=== PATIENT | male | born 1985 | race Caucasian/White ===

== ENCOUNTER 2019-04-02 23:42 | Emergency (ER) | payer OTHER ==
--- OUTSIDE RECORDS SUMMARY | 2019-04-02 23:44 | XMS REPORT ---
:1985 Author Organization eClinicalWorks Care Team Providers Name Role Phone Luis Manuel Garcia Provider Role Unavailable Allergies, Adverse Reactions, Alerts Substance Reaction Event Type N.K.D.A. Info Not Available Non Drug Allergy Problems Problem Type Condition Code Onset Dates Condition Status Problem Migraine, unspecified, not G43.901 Active intractable, with status migrainosus Problem ADHD (attention deficit F90.2 Active hyperactivity disorder), combined type Problem Elevated blood pressure reading in I10 Active office with diagnosis of hypertension Assessment ADHD (attention deficit F90.2 Active hyperactivity disorder), combined type Medications Medication Code Code Instructions Start End Date Status Dosage System Date Adderall XR [facility] [id number] 30 MG Orally February 25Apr 30, Active 1 capsule Once a day 2017 2017 in the morning Adderall NDC 59448668647 30 MG Orally Apr 30, Active 1 tablet Twice a day 2017 Results No Known Results Summary Purpose eClinicalWorks Submission
--- OUTSIDE RECORDS SUMMARY | 2019-04-02 23:44 | XMS REPORT ---
[...] hyperactivity disorder), combined type Medications Medication Code System Code Instructions Start Date End Date Status Dosage Adderall [facility] [id number] 30 MG Orally Apr 30, Active 1 tablet Twice a day 2017 Results No Known Results Summary Purpose eClinicalWorks Submission
--- OUTSIDE RECORDS SUMMARY | 2019-04-02 23:44 | XMS REPORT ---
:1985 Author Organization eClinicalWorks Care Team Providers Name Role Phone Luis Manuel Garcia Provider Role Unavailable Allergies No Known Allergies Problems Problem Type Condition Code Onset Dates Condition Status Problem Migraine, unspecified, not G43.901 Active intractable, with status migrainosus Problem ADHD (attention deficit F90.2 Active hyperactivity disorder), combined type Problem Elevated blood pressure reading in I10 Active office with diagnosis of hypertension Assessment ADHD (attention deficit F90.2 Active hyperactivity disorder), combined type Medications Medication Code Code Instructions Start End Status Dosage System Date Date Adderall XR NDC [id number] 30 MG Orally February 25, Active 1 capsule Once a day 2018 in the morning Adderall XR NDC 43772860605 30 MG Orally February 25, Active 1 capsule Once a day 2018 in the morning [place] 78079284835 30 MG Orally February 23February 25, Inactive 1 capsule Once a day 2017 2017 in the morning Results No Known Results Summary Purpose eClinicalWorks Submission
--- OUTSIDE RECORDS SUMMARY | 2019-04-02 23:44 | XMS REPORT ---
[...] Active office with diagnosis of hypertension Assessment Elevated blood pressure reading in I10 Active office with diagnosis of hypertension Assessment Encounter for general adult medical Z00.00 Active examination without abnormal findings Assessment ADHD (attention deficit F90.2 Active hyperactivity disorder), combined type Assessment Migraine, unspecified, not G43.901 Active intractable, with status migrainosus Medications Medication Code Code Instructions Start End Date Status Dosage System Date Adderall XR [facility] [id number] 30 MG Orally February 23, Active 1 capsule Once a day 2017 in the morning [place] 15363309016 30 MG Orally February 23, Active 1 capsule Once a day 2017 in the morning Results No Known Results Summary Purpose eClinicalWorks Submission
--- OUTSIDE RECORDS SUMMARY | 2019-04-02 23:44 | XMS REPORT ---
[...] Active office with diagnosis of hypertension Assessment Migraine, unspecified, not G43.901 Active intractable, with status migrainosus Assessment ADHD (attention deficit F90.2 Active hyperactivity disorder), combined type Medications Medication Code System Code Instructions Start Date End Date Status Dosage Adderall [facility] [id number] 30 MG Orally Apr 30, Active 1 tablet Twice a day 2017 Results No Known Results Summary Purpose eClinicalWorks Submission
--- OUTSIDE RECORDS SUMMARY | 2019-04-02 23:45 | XMS REPORT ---
[...] Active office with diagnosis of hypertension Assessment Allergic conjunctivitis of right H10.11 Active eye Assessment ADHD (attention deficit F90.2 Active hyperactivity disorder), combined type Medications Medication Code System Code Instructions Start Date End Date Status Dosage Adderall [facility] [id number] 30 MG Orally Apr 30, Active 1 tablet Twice a day 2017 Results No Known Results Summary Purpose eClinicalWorks Submission
[2019-04-03] MEDS ORDERED: HYDROCODONE/APAP 5/325 MG TAB ONE (00:31)
--- NOTE | 2019-04-03 00:54 | ER ---
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 Transition of care: patient was not received from another setting of care. Complicating Factors: There are no complicating factors for this patient. Onset of symptoms was April 02, 2019. Risk Assessment: Do you want to hurt yourself or someone else? Patient reports no desire to harm self or others. Initial Sepsis Screen: Does the patient meet any 2 criteria? No. Patient's initial sepsis screen is negative. Does the patient have a suspected source of infection? No. Patient's initial sepsis screen is negative. Care prior to arrival: None. 23:46 Method Of Arrival: Ambulatory la1 23:46 Acuity: JAILYN 3 la1 Historical: - Allergies: 23:47 No Known Allergies; la1 - Home Meds: 04/03 00:16 Concerta 27 mg Oral tr24 1 tab once daily [Active]; ak1 - PMHx: 00:16 ADD/ADHD; ak1 - PSHx: 00:16 None; ak1 - Immunization history:: Adult Immunizations up to date. - Social history:: Smoking status: Patient/guardian denies using tobacco. - Ebola Screening: : No symptoms or risks identified at this time. Screenin:15 Abuse screen: Denies threats or abuse. Denies injuries from another. Nutritional ak1 screening: No deficits noted. Tuberculosis screening: No symptoms or risk factors identified. Fall Risk None identified. Assessment: 00:11 General: Appears in no apparent distress. Behavior is calm, cooperative. Pain: ch Complains of pain in dorsal aspect of distal phalanx of right index finger and right index fingernail. Neuro: No deficits noted. Cardiovascular: No deficits noted. Respiratory: No deficits noted. GI: No signs and/or symptoms were reported involving the gastrointestinal system. : No signs and/or symptoms were reported regarding the genitourinary system. EENT: No signs and/or symptoms were reported regarding the EENT system. Derm: Wound noted dorsal aspect of distal phalanx of right index finger and right index fingernail pt stated his right 1st finger was slammed in a house door. pt fingernail is missing. bleeding is controlled. Musculoskeletal: Range of motion: intact in all extremities. Injury Description: Laceration is jagged. 01:11 Reassessment: Dr. Mobley spoke with Dr. Mera, pt is to see Dr. Mera Thursday ak1 morning in his office. pt informed of standing appointment on Thursday by Dr. Mobley. 01:20 Reassessment: Patient appears in no apparent distress at this time. Patient and/or ch family updated on plan of care and expected duration. Pain level reassessed. Patient is alert, oriented x 3, equal unlabored respirations, skin warm/dry/pink. Vital Signs: 04/02 23:47 BP 163 / 81; Pulse 72; Resp 16; Temp 98.7; Pulse Ox 98% on R/A; Weight 83.91 kg; Height la1 5 ft. 11 in. (180.34 cm); 04/03 01:00 BP 122 / 74; Pulse 84; Resp 16; Temp 98.8; Pulse Ox 99% on R/A; Pain 4/10; ch 04/02 23:47 Body Mass Index 25.80 (83.91 kg, 180.34 cm) la1 ED Course: 04/02 23:43 Patient arrived in ED. am2 23:47 Triage completed. la1 23:48 Arm band placed on left wrist. la1 04/03 00:11 Jessica Holland, RN is Primary Nurse. ch 00:16 Patient has correct armband on for positive identification. Bed in low position. Call ak1 light in reach. Side rails up X 1. Pulse ox on. NIBP on. 00:30 X-ray completed. Portable x-ray completed in exam room. Patient tolerated procedure mh1 well. 00:31 Hand Right 3 View XRAY In Process Unspecified. EDMS 00:32 Daniel Mobley MD is Attending Physician. pkl 00:52 Gentry Saunders MD is Referral Physician. pkl 01:00 Warm blanket given. ch 01:00 No provider procedures requiring assistance completed. Patient did not have IV access ch during this emergency room visit. 01:18 No apparent distress. Resting quietly. ch 01:18 Wound care: to nail bed amputation located on right index fingernail and dorsal aspect ch of distal phalanx of right index finger was cleaned with soaked in normal saline solution, irrigated with normal saline, dressed with Neosporin, 4X4s, Vaseline gauze, Patient tolerated well. Administered Medications: 00:17 Drug: [place] 5 mg-325 mg 2 tabs Route: PO; la1 01:12 Follow up: Response: No adverse reaction; Pain is decreased ak1 00:51 Drug: KeFLEX 500 mg Route: PO; ak1 01:12 Follow up: Response: No adverse reaction ak1 Outcome: 00:53 Discharge ordered by . pkl 01:15 Discharged to home ambulatory, with family. ch 01:15 Condition: improved 01:15 Discharge instructions given to patient, family, Instructed on discharge instructions, follow up and referral plans. medication usage, wound care, Demonstrated understanding of instructions, follow-up care, medications, wound care, Prescriptions given X 2. 01:23 Patient left the ED. Signatures: Dispatcher [employer] EDMS Jessica Holland RN Daniel Hale ch, MD MD pkl Harvey, Martha Talon Gannon RN RN Tatiana Hodgson RN RN [email or web address] Zenaida Watkins am2 Corrections: (The following items were deleted from the chart) 00:16 07/06 23:47 PMHx: None; brittnee ak1
--- NOTE | 2019-04-03 00:54 | EDPHYS ---
Physician Documentation [facility] Name: Juancarlos Munoz Age: 33 yrs Sex: Male : 1985 Arrival Date: 04/02/2019 Time: 23:43 Bed 5 Private MD: ED Physician Daniel Mobley HPI: 04/03 00:44 This 33 yrs old Male presents to ER via Ambulatory with complaints of pkl Laceration - to Finger. 00:44 The patient or guardian reports injury, pain, amputation tip of right index finger. pkl Context: resulted from finger caught in house door. Onset: The symptoms/episode began/occurred just prior to arrival. Historical: - Allergies: 04/02 23:47 No Known Allergies; la1 - Home Meds: 04/03 00:16 Concerta 27 mg Oral tr24 1 tab once daily [Active]; ak1 - PMHx: 00:16 ADD/ADHD; ak1 - PSHx: 00:16 None; ak1 - Immunization history:: Adult Immunizations up to date. - Social history:: Smoking status: Patient/guardian denies using tobacco. - Ebola Screening: : No symptoms or risks identified at this time. ROS: 00:44 Eyes: Negative for injury, pain, redness, and discharge, ENT: Negative for injury, pkl pain, and discharge, Neck: Negative for injury, pain, and swelling, Cardiovascular: Negative for chest pain, palpitations, and edema, Respiratory: Negative for shortness of breath, cough, wheezing, and pleuritic chest pain, Abdomen/GI: Negative for abdominal pain, nausea, vomiting, diarrhea, and constipation, Back: Negative for injury and pain, : Negative for injury, bleeding, discharge, and swelling. 00:44 MS/extremity: Positive for amputation distal right index finger involving nail bed. 00:44 Neuro: Negative for altered mental status. Exam: 00:44 Head/Face: Normocephalic, atraumatic. Eyes: Pupils equal round and reactive to light, pkl extra-ocular motions intact. Lids and lashes normal. Conjunctiva and sclera are non-icteric and not injected. Cornea within normal limits. Periorbital areas with no swelling, redness, or edema. ENT: Nares patent. No nasal discharge, no septal abnormalities noted. Tympanic membranes are normal and external auditory canals are clear. Oropharynx with no redness, swelling, or masses, exudates, or evidence of obstruction, uvula midline. Mucous membranes moist. Neck: Trachea midline, no thyromegaly or masses palpated, and no cervical lymphadenopathy. Supple, full range of motion without nuchal rigidity, or vertebral point tenderness. No Meningismus. Chest/axilla: Normal chest wall appearance and motion. Nontender with no deformity. No lesions are appreciated. Cardiovascular: Regular rate and rhythm with a normal S1 and S2. No gallops, murmurs, or rubs. Normal PMI, no JVD. No pulse deficits. Respiratory: Lungs have equal breath sounds bilaterally, clear to auscultation and percussion. No rales, rhonchi or wheezes noted. No increased work of breathing, no retractions or nasal flaring. Abdomen/GI: Soft, non-tender, with normal bowel sounds. No distension or tympany. No guarding or rebound. No evidence of tenderness throughout. Back: No spinal tenderness. No costovertebral tenderness. Full range of motion. Neuro: Awake and alert, GCS 15, oriented to person, place, time, and situation. Cranial nerves II-XII grossly intact. Motor strength 5/5 in all extremities. Sensory grossly intact. Cerebellar exam normal. Normal gait. 00:44 Musculoskeletal/extremity: Extremities: grossly normal except: noted in the right index finger: amputation distal right index finger involving nail bed. Vital Signs: 04/02 23:47 BP 163 / 81; Pulse 72; Resp 16; Temp 98.7; Pulse Ox 98% on R/A; Weight 83.91 kg; Height la1 5 ft. 11 in. (180.34 cm); 04/03 01:00 BP 122 / 74; Pulse 84; Resp 16; Temp 98.8; Pulse Ox 99% on R/A; Pain 4/10; ch 04/02 23:47 Body Mass Index 25.80 (83.91 kg, 180.34 cm) la1 MDM: 00:33 Patient medically screened. pkl 00:44 Data reviewed: vital signs, nurses notes, radiologic studies, plain films. ED course: pk Talked to Dr. Anderson, will see patient in his [place] office on Thursday04/04/19. 04/02 23:53 Order name: Hand Right 3 View XRAY la1 Administered Medications: 00:17 Drug: [place] 5 mg-325 mg 2 tabs Route: PO; la1 01:12 Follow up: Response: No adverse reaction; Pain is decreased ak1 00:51 Drug: KeFLEX 500 mg Route: PO; ak1 01:12 Follow up: Response: No adverse reaction ak1 Disposition: 04/03/19 00:53 Discharged to Home. 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 - Condition is Stable. - Prescriptions for Keflex 500 mg Oral Capsule - take 1 capsule by ORAL route every 6 hours for 10 days; 40 capsule. Ultram 50 mg Oral Tablet - take 1 tablet by ORAL route every 6 hours As needed; 20 tablet. - Medication Reconciliation Form, Thank You Letter, Antibiotic Education, Prescription Opioid Use form. - Follow up: Gentry Saunders MD; When: 1 - 2 days; Reason: Re-evaluation by your physician. - Problem is new. - Symptoms are unchanged. Signatures: Dispatcher [employer] EDMS Jessica Holland RN RN Daniel Mobley MD MD pkl Talon Rodriguez RN RN la1 Tatiana Do RN RN ak1 Corrections: (The following items were deleted from the chart) 00:16 04/02 23:47 PMHx: None; la1 ak1 04/03 01:23 00:53 04/03/2019 00:53 Discharged to Home. Impression: Amputation distal right index ch finger involving nail bed. Condition is Stable. Forms are Medication Reconciliation Form, Thank You Letter, Antibiotic Education, Prescription Opioid Use. Follow up: Gentry Saunders; When: 1 - 2 days; Reason: Re-evaluation by your physician. Problem is new. Symptoms are unchanged. pkl
[2019-04-03] MEDS ORDERED: CEPHALEXIN 250 MG CAP ONE (01:01)
--- NOTE | 2019-04-03 08:41 | RAD REPORT ---
EXAM DESCRIPTION: RAD - Hand Right 3 View - 04/03/2019 12:32 am CLINICAL HISTORY: Right second digit pain, crush injury COMPARISON: None. FINDINGS: Soft tissue injury is present at the tip of the right index finger. Small fracture change present involving the second distal phalanx tuft. No foreign body identified. No foreign body or othe r soft tissue abnormality. IMPRESSION: Right second distal phalanx tuft fracture with soft tissue wound. No foreign body.
== END 2019-04-03 01:23 | disposition home or self-care (01) ==
LOC: ER 23:42
DX: S68.120A Partial traumatic metacarpophalangeal amputation of right index finger, initial encounter (principal); W23.0XXA Caught, crushed, jammed, or pinched between moving objects, initial encounter
CPT/HCPCS: 99284

== ENCOUNTER 2020-01-15 21:50 | Emergency (ER) | payer OTHER ==
--- OUTSIDE RECORDS SUMMARY | 2020-01-15 21:52 | XMS REPORT ---
:1985 Author Organization eClinicalWorks Care Team Providers Name Role Phone Luis Manuel Garcia Provider Role Unavailable Allergies, Adverse Reactions, Alerts Substance Reaction Event Type N.K.D.A. Info Not Available Non Drug Allergy Problems Problem Type Condition Code Onset Dates Condition Statu s Problem Migraine, unspecified, not G43.901 A ctive intractable, with status migrainosus Problem ADHD (attention deficit F90.2 Acti ve hyperactivity disorder), combined type Problem Elevated blood pressure reading in I10 Active office with diagnosis of hypertension Assessment Allergic conjunctivitis of right H10.11 Active eye Assessment ADHD (attention deficit F90.2 Acti ve hyperactivity disorder), combined type Medications Medication Code System Code Instructions Start Date End Date Status Dosage Adderall [facility] [id number] 30 MG Orally Apr 30, Active 1 tabl et Twice a day 2018 Results No Known Results Summary Purpose eClinicalWorks Submission
--- OUTSIDE RECORDS SUMMARY | 2020-01-15 21:52 | XMS REPORT ---
:1985 Author Organization [facility] t Address [address] [place] [address] Care Team Providers Name Role Phone Unavailable Unavailable Unavailable Payers Payer Name Policy Type Policy Number Effective Date Expiration D ate Problems Condition Condition Condition Status Onset Resolution Last Treatin g Comments Name Details Category Date Date Treatment Clinician Date ADHD ADHD Problem Active (attention (attention deficit deficit hyperactivi hyperactivi ty ty disorder), disorder), combined combined type type Migraine, Migraine, Problem Active unspecified unspecified , not , not intractable intractable , with , with status status migrainosus migrainosus Elevated Elevated Problem Active blood blood pressure pressure reading in reading in office with office with diagnosis diagnosis of of hypertensio hypertensio n n Allergies, Adverse Reactions, Alerts Allergy Allergy Status Severity Reaction(s) Onset Inactive Treating C omments Name Type Date Date Clinician No Known DA Active U 2019-03 Allergies -11 00:00:0 0 Medications Ordered Filled Start Stop Current Ordering Indication Dosage Frequency Signature Comments Components Medication Medication Date Date Medication? Clinician (SIG) Name Name Adderall Adderall Yes Erich 1 tablet 12-28 Fang 00:00: 00 Encounters Start End Encounter Admission Attending Care Care Encounter Date/Time Date/Time Type Type Clinicians Facility Department ID 2019-11-30 2019-11-30 [facility] [id number] 08:42:00 08:42:00 [facility] Medicine 2019-11-28 2019-11-28 [facility] [id number] 08:30:00 08:30:00 [facility] 2019-11-03 2019-11-03 [facility] [id number] 10:29:00 10:29:00 [facility] 2019-10-04 2019-10-04 [facility] [id number] 08:15:00 08:15:00 [facility] 2019-08-24 2019-08-24 [facility] [id number] 09:00:00 09:00:00 [facility] 2019-08-10 2019-08-10 [facility] [id number] 11:01:00 11:01:00 [facility] 2019-05-04 2019-05-04 [facility] [id number] 16:45:00 16:45:00 [facility] 2018-12-30 2018-12-30 [facility] [id number] 08:30:00 08:30:00 [facility] 2018-10-28 2018-10-28 [facility] [id number] 11:15:00 11:15:00 [facility] 2018-07-05 2018-07-05 [facility] [id number] 15:30:00 15:30:00 [facility] 2018-04-30 2018-04-30 [facility] [id number] 10:00:00 10:00:00 [facility] 2018-02-25 2018-02-25 [facility] [id number] 11:00:00 11:00:00 [facility] 2018-02-23 2018-02-23 [facility] [id number] 08:30:00 08:30:00 [facility] 2017-12-24 2017-12-24 [facility] [id number] 11:15:00 11:15:[address] [facility] Results Test Description Test Time Test Comments Text Results Atomic Results Result Comments CBC W/AUTO DIFF 2019-04-07 11:36:00 Test Item Value Reference Range Comments WHITE BLOOD CELL (test code = WBC) 5.06 x10 3/uL 4.5-11.0 RED BLOOD CELL (test code = RBC) 5.29 x10 6/uL 4.00-5.60 HEMOGLOBIN (test code = HGB) 13.8 g/dL 12.5-16.9 HEMATOCRIT (test code = HCT) 45.0 % 37.5-50.7 MEAN CELL VOLUME (test code = MCV) 85.1 fL 81.0-99.0 MEAN CELL HGB (test code = MCH) 26.1 pg 27.0-33.0 MEAN CELL HGB CONCETRATION (test code = MCHC) 30.7 g/dL 33 .0-37.0 RED CELL DISTRIBUTION WIDTH CV (test code = RDW) 13.5 % 11.5-14.5 RED CELL DISTRIBUTION WIDTH SD (test code = RDW-SD) 41.6 fL 37.0-54.0 PLATELET COUNT (test code = PLT) 186 x10 3/uL 150-400 MEAN PLATELET VOLUME (test code = MPV) 12.7 fL 7.0-9.0 NEUTROPHIL % (test code = NT%) 47.2 % 56.0-77.0 IMMATURE GRANULOCYTE % (test code = IG%) 0.2 % 0.0-2.0 LYMPHOCYTE % (test code = LY%) 39.5 % 14.0-32.0 MONOCYTE % (test code = MO%) 9.9 % 4.8-9.0 EOSINOPHIL % (test code = EO%) 2.8 % 0.3-3.7 BASOPHIL % (test code = BA%) 0.4 % 0.0-2.0 NUCLEATED RBC % (test code = NRBC%) 0.0 % 0-0 NEUTROPHIL # (test code = NT#) 2.39 x10 3/uL 2.0-7.6 IMMATURE GRANULOCYTE # (test code = IG#) 0.01 x10 3/uL 0.00-0. 03 LYMPHOCYTE # (test code = LY#) 2.00 x10 3/uL 1.0-3.8 MONOCYTE # (test code = MO#) 0.50 x10 3/uL 0.1-0.8 EOSINOPHIL # (test code = EO#) 0.14 x10 3/uL 0.0-0.2 BASOPHIL # (test code = BA#) 0.02 x10 3/uL 0.0-0.2 NUCLEATED RBC # (test code = NRBC#) 0.00 x10 3/uL 0.0-0.1 MANUAL DIFF REQUIRED (test code = MDIFF) NO
--- OUTSIDE RECORDS SUMMARY | 2020-01-15 21:53 | XMS REPORT ---
[...] I10 Active office with diagnosis of hypertension Medications No Known Medications Results No Known Results Summary Purpose eClinicalWorks Submission
--- OUTSIDE RECORDS SUMMARY | 2020-01-15 21:53 | XMS REPORT ---
:1985 Author Organization eClinicalWorks Care Team Providers Name Role Phone Leoncio [facility] Provider Role Unavailable Allergies, Adverse Reactions, Alerts [...] of hypertension Assessment Migraine, unspecified, not G43.901 A ctive intractable, with status migrainosus Assessment Elevated BP without diagnosis of R03.0 Active hypertension Assessment ADHD (attention deficit F90.2 Acti ve hyperactivity disorder), combined type Medications Medication Code System Code Instructions Start Date End Date Status Dosage Adderall NDC [id number] 30 MG Orally Nov 04, Active 1 tabl et Twice a day 2019 Adderall NDC 23422474577 30 MG Orally Oct 04, Active 1 tabl et Twice a day 2019 Results No Known Results Summary Purpose eClinicalWorks Submission
--- OUTSIDE RECORDS SUMMARY | 2020-01-15 21:53 | XMS REPORT ---
:1985 Author Organization eClinicalWorks Care Team Providers Name Role Phone Leoncio [facility] Provider Role Unavailable Allergies No Known Allergies Problems Problem Type Condition Code Onset Dates Condition Statu s Problem Migraine, unspecified, not G43.901 A ctive intractable, with status migrainosus Problem ADHD (attention deficit F90.2 Acti ve hyperactivity disorder), combined type Problem Elevated blood pressure reading in I10 Active office with diagnosis of hypertension Assessment ADHD (attention deficit F90.2 Acti ve hyperactivity disorder), combined type Medications Medication Code System Code Instructions Start Date End Date Status Dosage Adderall [facility] [id number] 30 MG Orally Nov 03, Active 1 tabl et Twice a day 2019 Results No Known Results Summary Purpose eClinicalWorks Submission
--- OUTSIDE RECORDS SUMMARY | 2020-01-15 21:53 | XMS REPORT ---
:1985 Author Organization eClinicalWorks Care Team Providers Name Role Phone Kem Fangh Provider Role Unavailable Allergies, Adverse Reactions, Alerts Substance Reaction Event Type N.K.D.A. Info Not Available Non Drug Allergy Problems Problem Type Condition Code Onset Dates Condition Statu s Assessment Elevated BP without diagnosis of R03.0 Active hypertension Problem Migraine, unspecified, not G43.901 A ctive intractable, with status migrainosus Problem ADHD (attention deficit F90.2 Acti ve hyperactivity disorder), combined type Problem Elevated blood pressure reading in I10 Active office with diagnosis of hypertension Assessment ADHD (attention deficit F90.2 Acti ve hyperactivity disorder), combined type Assessment Migraine, unspecified, not G43.901 A ctive intractable, with status migrainosus Assessment Well adult on routine health check Z00.00 Active Medications Medication Code System Code Instructions Start Date End Date Status Dosage Adderall NDC [id number] 30 MG Orally November 27, Active 1 ta blet Twice a day 2019 Adderall NDC 49290986606 30 MG Orally December 28, Active 1 ta blet Twice a day 2019 Results No Known Results Summary Purpose eClinicalWorks Submission
--- OUTSIDE RECORDS SUMMARY | 2020-01-15 21:53 | XMS REPORT ---
:1985 Author Organization [employer]Works Care Team Providers Name Role Phone Kem Fangh Provider Role Unavailable Allergies No Known Allergies [...]
--- OUTSIDE RECORDS SUMMARY | 2020-01-15 21:53 | XMS REPORT ---
:1985 Author Organization e[employer]Works Care Team Providers Name Role Phone Leoncio [facility] Provider Role Unavailable Allergies, Adverse Reactions, Alerts [...] A ctive intractable, with status migrainosus Assessment ADHD (attention deficit F90.2 Acti ve hyperactivity disorder), combined type Medications Medication Code Code Instructions Start End Date Status Dosage System Date Concerta [facility] [id number] 27 MG Orally March 04, Inactive 1 ta blet Once a day 2019 in the morning Adderall [facility] [id number] 30 MG Orally Aug 24, Active 1 tabl et Twice a day 2019 Results No Known Results Summary Purpose eClinicalWorks Submission
--- OUTSIDE RECORDS SUMMARY | 2020-01-15 21:53 | XMS REPORT ---
[...] Medications Medication Code System Code Instructions Start End Date Status Dos age Date Concerta [facility] [id number] 27 MG Orally March 04, Active 1 tab let in Once a day 2019 the morning Results No Known Results Summary Purpose eClinicalWorks Submission
[2020-01-15] MEDS ORDERED: BUPIVACAINE 0.5% PF 10 ML VIAL ONE (22:21)
[2020-01-15] MEDS ORDERED: DOXYCYCLINE 100 MG CAP PO ONE (23:22)
--- NOTE | 2020-01-15 23:23 | ER ---
Nurse's Notes [facility] Name: Juancarlos Munoz Age: 34 yrs Sex: Male : 1985 Arrival Date: 01/15/2020 Time: 21:52 Bed 7 Private MD: Erich Fang Diagnosis: Finger Laceration Presentation: 01/14 22:06 Chief complaint: Patient states: "I was cutting up bait getting ready to go fishing jd3 when my knife slipped and got me in my left index finger on the knuckle.". Coronavirus screen: Proceed with normal triage. Ebola Screen: Patient negative for fever greater than or equal to 101.5 degrees Fahrenheit, and additional compatible Ebola Virus Disease symptoms. Initial Sepsis Screen: Does the patient meet any 2 criteria? No. Patient's initial sepsis screen is negative. Does the patient have a suspected source of infection? No. Patient's initial sepsis screen is negative. Risk Assessment: Do you want to hurt yourself or someone else? Patient reports no desire to harm self or others. Onset of symptoms was January 15, 2020. 22:06 Method Of Arrival: Ambulatory jd3 22:06 Acuity: JAILYN 3 jd3 Historical: - Allergies: 22:08 No Known Allergies; jd3 - Home Meds: 22:08 Adderall oral oral [Active]; jd3 - PMHx: 22:08 ADD/ADHD; jd3 - PSHx: 22:08 right index finger; jd3 - Immunization history:: Adult Immunizations up to date. - Social history:: Smoking status: Patient/guardian denies using tobacco, the patient reports quitting approximately 5 years ago. Screenin:12 Abuse screen: Denies threats or abuse. Nutritional screening: No deficits noted. jd3 Tuberculosis screening: No symptoms or risk factors identified. Fall Risk Ambulatory Aid- None/Bed Rest/Nurse Assist (0 pts). Gait- Normal/Bed Rest/Wheelchair (0 pts) Mental Status- Oriented to own ability (0 pts). Total Turcios Fall Scale indicates No Risk (0-24 pts). Assessment: 22:09 General: Appears in no apparent distress. comfortable, Behavior is calm, cooperative, jd3 appropriate for age. Pain: Complains of pain in knuckle of left index finger Quality of pain is described as aching, stinging. Neuro: Level of Consciousness is awake, alert, obeys commands, Oriented to person, place, time, situation. Cardiovascular: Capillary refill < 3 seconds Patient's skin is warm and dry. Respiratory: Airway is patent Respiratory effort is even, unlabored, Respiratory pattern is regular, symmetrical. GI: No signs and/or symptoms were reported involving the gastrointestinal system. : No signs and/or symptoms were reported regarding the genitourinary system. EENT: No signs and/or symptoms were reported regarding the EENT system. Derm: Skin is intact, Skin is dry, Skin is normal, Skin temperature is warm. Musculoskeletal: Circulation, motion, and sensation intact. Range of motion: intact in all extremities. Injury Description: Laceration sustained to knuckle of left index finger is 0.5 to 2.5 cm long, not bleeding. 23:04 Reassessment: Patient appears in no apparent distress at this time. Patient and/or jd3 family updated on plan of care and expected duration. Pain level reassessed. Patient is alert, oriented x 3, equal unlabored respirations, skin warm/dry/pink. provider at bedside suturing laceration. 23:29 Reassessment: Patient appears in no apparent distress at this time. Patient and/or jd3 family updated on plan of care and expected duration. Pain level reassessed. Patient is alert, oriented x 3, equal unlabored respirations, skin warm/dry/pink. pt reported understanding of discharge instructions, even and steady gait upon discharge. Patient states feeling better. Vital Signs: 22:08 BP 152 / 88; Pulse 67; Resp 17 S; Temp 98.2(TE); Pulse Ox 100% on R/A; Weight 78.47 kg jd3 (R); Height 5 ft. 11 in. (180.34 cm) (R); Pain 5/10; 23:06 BP 141 / 84; Pulse 69; Resp 16 S; Pulse Ox 100% on R/A; jd3 22:08 Body Mass Index 24.13 (78.47 kg, 180.34 cm) [facility] ED Course: 21:52 Patient arrived in ED. mr 21:53 Erich Fang DO is Private Physician. mr 22:01 Miguel [facility]reguin [facility] 22:01 Stefan Panda MD is Attending Physician. [facility] 22:06 Asad Hammond, RN is Primary Nurse. jd3 22:07 Triage completed. jd3 22:09 Arm band placed on. jd3 22:13 Patient has correct armband on for positive identification. Bed in low position. Call j light in reach. Side rails up X 1. Pulse ox on. NIBP on. 23:05 Assist provider with laceration repair on knuckle of left index finger that was 2.5 cm. jd3 or less using sutures. Set up tray. Performed by Miguel ALBARADO Dressed with 4X4s, Patient tolerated well. Patient did not have IV access during this emergency room visit. 23:22 Erich Fang DO is Referral Physician. shayy Administered Medications: 22:35 Drug: Marcaine (0.5 %) 1 vials {Note: given by Miguel ALBARADO.} Volume: 10 ml; Route: jd3 Infiltration; 23:20 Drug: Doxycycline 100 mg Route: PO; jd3 23:28 Follow up: Response: No adverse reaction jd3 Outcome: 23:23 Discharge ordered by . [facility] 23:28 Discharged to home ambulatory. jd3 23:28 Condition: stable 23:28 Discharge instructions given to patient, Instructed on discharge instructions, follow up and referral plans. medication usage, Demonstrated understanding of instructions, follow-up care, medications, Prescriptions given X 1. 23:30 Patient left the ED. jd3 Signatures: Miguel Arreguin PA PA jmm Echo Orellana Asad Hammond, RN RN jd3
--- NOTE | 2020-01-15 23:23 | EDPHYS ---
Physician Documentation [facility] Name: Juancarlos Munoz Age: 34 yrs Sex: Male : 1985 Arrival Date: 01/15/2020 Time: 21:52 Bed 7 Private MD: Kem Fangh ED Physician Stefan Panda HPI: 01/14 22:09 This 34 yrs old Male presents to ER via Ambulatory with complaints of Finger jmm laceration. 22:09 Onset: The symptoms/episode began/occurred acutely, 5 hour(s) ago. Modifying factors: jmm The symptoms are alleviated by nothing, the symptoms are aggravated by nothing. Associated signs and symptoms: Pertinent negatives: cyanosis distally, decreased sensation distally, fever, nausea, numbness distally, tingling distally, vomiting. This is a 34 year old male with a history of ADD/ADHD that presents to the ED with complaints of laceration to his left 2nd finger. Patient accidently cut himself while fishing. Laceration noted to the dorsum of the left 2nd pip. Patient is UTD on tetanus immunizations. . Historical: - Allergies: 22:08 No Known Allergies; jd3 - Home Meds: 22:08 Adderall oral oral [Active]; jd3 - PMHx: 22:08 ADD/ADHD; jd3 - PSHx: 22:08 right index finger; jd3 - Immunization history:: Adult Immunizations up to date. - Social history:: Smoking status: Patient/guardian denies using tobacco, the patient reports quitting approximately 5 years ago. ROS: 22:09 Constitutional: Negative for fever, chills, and weight loss, Cardiovascular: Negative jmm for chest pain, palpitations, and edema, Respiratory: Negative for shortness of breath, cough, wheezing, and pleuritic chest pain. 22:09 MS/extremity: Positive for pain. 22:09 Skin: Positive for laceration(s). 22:09 All other systems are negative. Exam: 22:09 Constitutional: This is a well developed, well nourished patient who is awake, alert, jmm and in no acute distress. Head/Face: atraumatic. Eyes: EOMI, no conjunctival erythema appreciated ENT: Moist Mucus Membranes Neck: Trachea midline, Supple Chest/axilla: Normal chest wall appearance and motion. Cardiovascular: Regular rate and rhythm. No edema appreciated Respiratory: Normal respirations, no respiratory distress appreciated Abdomen/GI: Non distended, soft Back: Normal ROM 22:09 Musculoskeletal/extremity: laceration noted to the dorsum of the left pip, full extension against resistance appreciated. 22:09 Skin: laceration noted to the 2nd pip at the dorsal surface, tendon is not visualized. 22:09 Neuro: Orientation: is normal, Mentation: is normal, Memory: is normal. 22:09 Psych: Behavior/mood is pleasant, cooperative. Vital Signs: 22:08 BP 152 / 88; Pulse 67; Resp 17 S; Temp 98.2(TE); Pulse Ox 100% on R/A; Weight 78.47 kg jd3 (R); Height 5 ft. 11 in. (180.34 cm) (R); Pain 5/10; 23:06 BP 141 / 84; Pulse 69; Resp 16 S; Pulse Ox 100% on R/A; jd3 22:08 Body Mass Index 24.13 (78.47 kg, 180.34 cm) jd3 Laceration: 23:11 Wound Repair of 3cm ( 1.2in ) subcutaneous laceration to dorsal aspect of middle jmm phalanx of left index finger. Distal neuro/vascular/tendon intact. Anesthesia: Digital block administered with 3 mls of 0.5% marcaine. Wound prep: Simple cleansing with betadine by me. Skin closed with 7 5-0 Prolene using simple sutures and sterile technique. Patient tolerated well. MDM: 22:09 Patient medically screened. shayy 23:20 Data reviewed: vital signs, nurses notes. Counseling: I had a detailed discussion with shayy the patient and/or guardian regarding: the historical points, exam findings, and any diagnostic results supporting the discharge/admit diagnosis, the need for outpatient follow up, to return to the emergency department if symptoms worsen or persist or if there are any questions or concerns that arise at home. ED course: Patient given wound infection return precautions. patient understood and agrees with the plan of care. . 01/14 22:16 Order name: Suture Tray Setup; Complete Time: 22:16 jd3 Administered Medications: 22:35 Drug: Marcaine (0.5 %) 1 vials {Note: given by Miguel MCBRIDE} Volume: 10 ml; Route: jd3 Infiltration; 23:20 Drug: Doxycycline 100 mg Route: PO; jd3 23:28 Follow up: Response: No adverse reaction jd3 Disposition: 01/15/20 23:23 Discharged to Home. Impression: Finger Laceration. - Condition is Stable. - Discharge Instructions: Laceration Care, Adult. - Prescriptions for Doxycycline Hyclate 100 mg Oral Tablet - take 1 tablet by ORAL route every 12 hours; 20 tablet. - Medication Reconciliation Form, Thank You Letter, Antibiotic Education, Prescription Opioid Use form. - Follow up: Erich Fang DO; When: 1 week; Reason: Recheck today's complaints, Continuance of care, Re-evaluation by your physician. Addendum: 01/17/2020 10:05 Co-signature as Attending Physician, Stefan Panda MD I agree with the assessment and t w4 plan of care. Signatures: Miguel Arreguin PA PA jmm Davies, Jonathon, RN RN jd3 Wadley, Terrence, MD MD tw4 Corrections: (The following items were deleted from the chart) 01/14 23:30 23:23 01/15/2020 23:23 Discharged to Home. Impression: Finger Laceration. Condition is jd3 Stable. Forms are Medication Reconciliation Form, Thank You Letter, Antibiotic Education, Prescription Opioid Use. Follow up: Erich Fang; When: 1 week; Reason: Recheck today's complaints, Continuance of care, Re-evaluation by your physician. shayy
[2020-01-15 23:37] VITALS: TEMP 98.2; O2SAT 100
[2020-01-15 23:38] VITALS: BP 141/84
== END 2020-01-15 23:30 | disposition home or self-care (01) ==
LOC: ER 21:50
PROC: 0JQK0ZZ Repair Left Hand Subcutaneous Tissue and Fascia, Open Approach (ICD-10-PCS; principal; 2020-01-15)
DX: S61.211A Laceration without foreign body of left index finger without damage to nail, initial encounter (principal); W45.8XXA Other foreign body or object entering through skin, initial encounter; Y93.89 Activity, other specified; Y92.9 Unspecified place or not applicable; F90.9 Attention-deficit hyperactivity disorder, unspecified type
CPT/HCPCS: 99284